=== PATIENT | female | born 1985 | race Caucasian/White ===

== ENCOUNTER 2020-05-08 15:21 | Inpatient (IN) | payer OTHER, MEDICAID, SELFPAY ==
[~2020-05-08] VITALS: Ht 152.4 cm; Wt 81.2 kg
[2020-05-08 15:31] VITALS: BP 142/81
--- NOTE | 2020-05-08 15:37 | NUR ---
1:1 WITH PATIENT IN TRIAGE ROOM WHILE BED OPENS UP, DISH PERSON AWARE
--- NOTE | 2020-05-08 16:05 | NUR ---
rapid covid swab collected and walked to lab
--- NOTE | 2020-05-08 16:06 | NUR ---
dr pringle at bedside evaluating pt.
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
[2020-05-08 16:39] LABS: BASOPHILS # (AUTO) 0.1 K/uL (0.00-0.22); BASOPHILS % (AUTO) 0.6 % (0.0-2.0); EOSINOPHILS % (AUTO) 0.2 % (0.0-4.0); HEMATOCRIT 38.7 % (36-48); HEMOGLOBIN 11.9 g/dL (12.0-16.0); LYMPHOCYTES % (AUTO) 22.7 % (20.5-51.1); MEAN CORPUSCULAR HEMOGLOBIN 21 pg (27-31); MEAN CORPUSCULAR HGB CONC 31 g/dL (33-37); MEAN CORPUSCULAR VOLUME 66.9 fL (80-94); MONOCYTES # (AUTO) 0.6 K/uL (0.8-1.0); NEUTROPHILS # (AUTO) 6.1 K/uL (1.8-7.7); NEUTROPHILS % (AUTO) 69.5 % (42.2-75.2); PLATELET COUNT (AUTO) 274 K/uL (140-450); RED BLOOD CELL COUNT(AUTO) 5.79 MIL/uL (4.20-5.40); RED CELL DISTRIBUTION WIDTH 14.9 % (11.6-13.7); WHITE BLOOD COUNT (AUTO) 8.8 K/uL (4.8-10.8)
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
[2020-05-08 16:57] LABS: ALBUMIN 4.5 g/dL (3.4-5.0); ANION GAP 13.5 (8-16); ASPARTATE AMINOTRANSFERASE 17 U/L (15-37); CARBON DIOXIDE 26.1 mmol/L (21-32); CHLORIDE 103 mmol/L (98-107); CREATININE 0.8 mg/dL (0.6-1.3); GFR ARICAN-AMERICAN 106 mL/min (>90); GLUCOSE 116 mg/dL (74-106); POTASSIUM 3.6 mmol/L (3.5-5.1); SODIUM SERUM 139 mmol/L (136-145); UREA NITROGEN, BLOOD 14 mg/dL (7-18)
[2020-05-08 16:58] LABS: ACETAMINOPHEN < 0.5 ug/ml (10-30); SALICYLATE < 2.8 mg/dL (2.8-20.0)
[2020-05-08 17:09] LABS: BARBITURATE, URINE NEGATIVE ng/ml (NEG <=200); BENZODIAZEPINE, URINE POSITIVE ng/mL (NEG <=200); CANNABINOID, URINE POSITIVE ng/mL (NEG <=50); OPIATE, URINE POSITIVE ng/mL (NEG <=2000)
[2020-05-08 17:10] LABS: COCAINE, URINE NEGATIVE ng/mL (NEG <=300); PHENCYCLIDINE SCREEN,URINE NEGATIVE ng/mL (NEG <=25)
--- NOTE | 2020-05-08 17:55 | NUR ---
psych at bedside evaluating pt.
[2020-05-08] MEDS ORDERED: LORazepam 1 MG TAB PO ONE (18:20)
[2020-05-08] MEDS ORDERED: LORazepam 1 MG TAB ONE (18:41)
--- NOTE | 2020-05-08 18:45 | NUR ---
dr pringle at bedside reevaluating pt.gave ativan 1 mg tab po.cyndi roca informed and aware meds are not in emar.
[2020-05-08] MEDS ORDERED: SERTRALINE 50 MG TAB ONE (18:47)
--- NOTE | 2020-05-08 18:55 | NUR ---
25mg tab given to pt rn abelino informed and aware.
[2020-05-08] MEDS: NACL 0.9% 1,000 ML IV SCH (19:04)
[2020-05-08] MEDS ORDERED: ACETAMINOPHEN 325 MG TAB PO PRN (19:05)
[2020-05-08] MEDS ORDERED: MAG SULF 2000 MG/WATER PREMIX 50 ML IV PRN (19:05)
[2020-05-08] MEDS ORDERED: DOCUSATE SODIUM 100 MG GELCAP PO PRN (19:05)
[2020-05-08] MEDS ORDERED: ONDANSETRON 4 MG/2 ML VIAL IM/IVP PRN (19:05)
--- NOTE | 2020-05-08 19:12 | NUR ---
gave report to cyndi mtz pt in bed with stable v/s , side rail up x1 and lock at lowest position.
--- NOTE | 2020-05-08 19:13 | NUR ---
RECIEVED REPORT FROM JAS ASHBY. TRANSFER OF CARE AT THIS TIME.
--- NOTE | 2020-05-08 19:27 | NUR ---
GAVE REPORT TO [facility] CHARGE RACHEL. PT WILL BE TAKEN TO BED 109A.
--- NOTE | 2020-05-08 19:35 | NUR ---
XRAY AT BEDSIDE.
--- NOTE | 2020-05-08 19:35 | NUR ---
RAD AT BEDSIDE
--- NOTE | 2020-05-08 19:50 | NUR ---
Patient will be admitted to care of MARJORIE. Admited to MS. Will go to room 109A. Belongings list completed. Report to JAS HODGES.
[2020-05-08 19:53] LABS: APPEARANCE,URINE CLEAR (CLEAR); BILIRUBIN,URINE 2+ (NEGATIVE); BLOOD, URINE NEGATIVE (NEGATIVE); LEUKOCYTE ESTERASE ,URINE NEGATIVE (NEGATIVE); NITRITE, URINE POSITIVE (NEGATIVE); PH,URINE 5.5 (5.0-9.0); UGLUCOSE NEGATIVE (NEGATIVE)
[2020-05-08 19:54] LABS: PROTHROMBIN TIME 12.5 secs (10.8-13.4)
--- NOTE | 2020-05-08 20:00 | NUR ---
PT ARRIVED TO FLOOR VIA W/C. PT IS AOX4 GUARDED AFFECT. PT STARTED TO CRY , BUT DECLINED TO SAY WHY. ROOMMATE OFFERED SUPPORT. PT ABLE TO AMBULATE INDEPENDENTLY. PT HAS 20GUAGE ON RAC INTACT AND ASYMPTOMATIC. PT NOTED WITH BRUISES ON LEFT UPPER ARM, ONE ON RIGHT ARM AND ONE UNDER HER CHIN. V/S FOLLOWS: T 97.8 P 80 R 18 B/P 127/78 02 100% ON ROOM AIR.
[2020-05-08 20:01] LABS: COLOR,URINE AMBER (YELLOW)
[2020-05-08 20:04] LABS: CHOL/HDL RATIO 2.8 (1-4.5); MAGNESIUM 2.1 mg/dL (1.8-2.4); PHOSPHORUS 3.1 mg/dL (2.5-4.9); THYROID STIMULATING HORMONE 0.23 uIU/mL (0.34-3.74)
--- NOTE | 2020-05-08 21:00 | NUR ---
ADMISSION QUESTIONS ANSWERED. N/S HUNG AND RUNNING AT 100MLS/HR. HEPARIN GIVEN PER ORDERED. PT EDUCATED AT BEDSIDE REGARDING PURPOSE AND SIDE EFFECTS OF HEPARIN. PLATELETS IN NORMAL RANGE. 1:1 SITTER AT BEDSIDE.
--- NOTE | 2020-05-08 22:30 | NUR ---
PT C/O DIFFICULTY FALLINGS ASLEEP AND IS FEELING ANXIOUS, PT WAS GIVEN 1MG OF ATIVAN IVP, WILL MONITOR FOR EFFECT.
[2020-05-08] MEDS: LORazepam 2 MG/ML VIAL IM/IVP PRN (22:38)
--- NOTE | 2020-05-09 | NUR ---
PT ASLEEP IN LOW BED N/S RUNNING ORDERED. 1:1 SITTER AT BEDSIDE.
[2020-05-09 01:06] VITALS: BP 127/78
--- NOTE | 2020-05-09 02:00 | NUR ---
SPOKE WITH [facility] REGARDING ORDER FORM MD BRANNON. WHO, ORDERED ATIVAN PO/PRN ORDERED X1 AND THN PRN/PRN ORDER NEED CLARIFICATION. WILL ENDORSE TO DAYSHIFT TO CLARIFY.
--- NOTE | 2020-05-09 05:00 | NUR ---
PT SLEEPING IN BED NO S/S OF PAIN OR DISTRESS NOTED. 1:1 SITTER AT BEDSIDE AND N/S RUNNING AT 100MLS/HR ORDERED.
[2020-05-09] MEDS: NACL 0.9% 1,000 ML IV SCH ×2 (05:04→15:04)
[2020-05-09 06:35] LABS: BASOPHILS % (AUTO) 0.8 % (0.0-2.0); EOSINOPHILS % (AUTO) 0.3 % (0.0-4.0); HEMATOCRIT 33.4 % (36-48); HEMOGLOBIN 10.4 g/dL (12.0-16.0); LYMPHOCYTES % (AUTO) 33.9 % (20.5-51.1); MEAN CORPUSCULAR HEMOGLOBIN 21 pg (27-31); MEAN CORPUSCULAR HGB CONC 31 g/dL (33-37); MEAN CORPUSCULAR VOLUME 67.6 fL (80-94); MONOCYTES # (AUTO) 0.4 K/uL (0.8-1.0); MONOCYTES % (AUTO) 7.3 % (1.7-9.3); NEUTROPHILS # (AUTO) 3.4 K/uL (1.8-7.7); NEUTROPHILS % (AUTO) 57.7 % (42.2-75.2); PLATELET COUNT (AUTO) 219 K/uL (140-450); RED BLOOD CELL COUNT(AUTO) 4.94 MIL/uL (4.20-5.40); RED CELL DISTRIBUTION WIDTH 14.7 % (11.6-13.7); WHITE BLOOD COUNT (AUTO) 5.8 K/uL (4.8-10.8)
[2020-05-09 07:12] LABS: ANION GAP 13.8 (8-16); CARBON DIOXIDE 24.6 mmol/L (21-32); CREATININE 0.8 mg/dL (0.6-1.3); POTASSIUM 3.4 mmol/L (3.5-5.1)
[2020-05-09 07:17] LABS: PHOSPHORUS 3.7 mg/dL (2.5-4.9)
--- NOTE | 2020-05-09 07:40 | NUR ---
RECEIVED PT FROM SENIOR IOS DEVELOPER NURSE, TRACIE, PT IS AWAKE AND LYING ON THE BED, 1:1 SITTER ON BEDSIDE, IV LINE NOTED ON THE RT AC G. 20 WITH NS INFUSING AT 100ML/HR, INTACT, PT IS ON ROOM AIR, SATURATION AT 97%, NO SIGN OF DISTRESS NOTED AND WILL CONTINUE TO MONITOR PT.
[2020-05-09 08:00] VITALS: BP 127/87
[2020-05-09] MEDS: SERTRALINE 50 MG TAB PO SCH (08:56)
[2020-05-09] MEDS: LORazepam 2 MG/ML VIAL IM/IVP PRN (08:58)
--- NOTE | 2020-05-09 08:58 | NUR ---
PT WAS GIVEN THE SCHEDULED AM MEDICATIONS, PARAMETER CHECKED, PT ASKED FOR ATIVAN AND WAS GIVEN WELL, BP IS 127/87, PULSE IS 92, O2 SATURATION IS AT 98% ON COTY AIR, TOLERATED AND NO SIGN OF DISTRESS NOTED, WILL MONITOR PT.
--- NOTE | 2020-05-09 09:08 | NUR ---
PATIENT HAS BEEN SCREENED AND CATEGORIZED LOW NUTRITION RISK. PATIENT WILL BE SEEN WITHIN 7 DAYS OF ADMISSION. 05/15/20 PATEL MAXWELL MBA, RD
--- NOTE | 2020-05-09 13:04 | NUR ---
PT WAS GIVEN 40MEQ K-DUR FOR K LEVEL OF 3.4, TOLERATED AND WILL MONITOR PT.
[2020-05-09] MEDS: POTASSIUM CHLORIDE 10 MEQ TABER PO PRN (13:05)
[2020-05-09] MEDS: HYDROcodone/APAP 5/325 MG 1 TAB TAB PO PRN (14:13)
--- NOTE | 2020-05-09 14:13 | NUR ---
PT C/O PAIN RATE OF 6/10 AND PAIN MEDICATION WAS GIVEN, TOLERATED, BP IS 136/83, PULSE IS 75, O2 SATURATION IS AT 98%, RESPIRATION IS AT 18/MIN, WILL MONITOR PT.
[2020-05-09 16:00] VITALS: BP 136/88
--- NOTE | 2020-05-09 16:40 | NUR ---
PT IS SLEEPING NOW, 1:1 SITTER ON BEDSIDE.
--- NOTE | 2020-05-09 19:20 | NUR ---
ENDORSED PT TO DETAIL ASSEMBLER NURSE FOR CONTINUITY OF CARE.
--- NOTE | 2020-05-09 19:25 | NUR ---
RECEIVED CONTINUITY OF CARE FROM AM NURSE. 1 ON 1 SITTER AT BEDSIDE. PATIENT IS RESTING IN BED, RESPIRATIONS EVEN AND UNLABORED. A/OX4 , SKIN IS WARM, INTACT, AND DRY TO TOUCH. DISCUSSED POC OF CARE WITH PATIENT. PATIENT VERBALIZED UNDERSTANDING. OBSERVED 5150 HOLD. BED IN LOW POSITION. PATIENT IS IN STABLE CONDITION AT THIS TIME. WILL CONTINUE TO MONITOR.
[2020-05-09] MEDS: ZOLPIDEM 5 MG TAB PO PRN (20:44)
--- NOTE | 2020-05-09 21:13 | NUR ---
ADMINISTERED PRN XIN. PT REFUSED HEPARIN INJECTION. EDUCATION WAS GIVEN. 1 ON 1 SITTER AT BEDSIDE. WILL CONTINUE TO MONITOR.
[2020-05-10] MEDS: NACL 0.9% 1,000 ML IV SCH ×4 (01:04→21:04)
--- NOTE | 2020-05-10 01:12 | NUR ---
PT CALLED FOR ATIVAN REPORTED FEELINGS OF ANXIETY. MEDICATED AT ORDERED. ASSISTED PATIENT TO THE BATHROOM AND BACK IN TO BED. WILL CONTINUE TO MONITOR. 1 ON 1 SITTER AT BEDSIDE.
--- NOTE | 2020-05-10 03:15 | NUR ---
PT IS SLEEPING. NO SIGNS OF DISTRESS NOTED AT THIS TIME. WILL CONTINUE TO MONITOR.
[2020-05-10 04:00] VITALS: BP 112/65
[2020-05-10 07:18] LABS: ANION GAP 13.1 (8-16); CARBON DIOXIDE 23.6 mmol/L (21-32); CREATININE 0.5 mg/dL (0.6-1.3); MAGNESIUM 1.9 mg/dL (1.8-2.4); PHOSPHORUS 2.8 mg/dL (2.5-4.9); POTASSIUM 3.7 mmol/L (3.5-5.1)
--- NOTE | 2020-05-10 07:25 | NUR ---
RECEIVED BEDSIDE REPORT FROM NIGHTSHIFT NURSE. PT RESTING IN BED. ABLE TO MAKE NEEDS KNOWN. RESPIRATIONS EVEN AND UNLABORED WITH NO SOB OR RESPIRATORY DISTRESS. IV SITE IN RAC 20G IS CLEAN, DRY, AND INTACT. SAFETY MEASURES IN PLACE. WILL CONTINUE TO MONITOR
--- NOTE | 2020-05-10 07:41 | NUR ---
ENDORSED CARE TO AM NURSE. PT IN STABLE CONDITION.
[2020-05-10 07:52] LABS: BASOPHILS % (AUTO) 0.5 % (0.0-2.0); EOSINOPHILS % (AUTO) 0.1 % (0.0-4.0); HEMATOCRIT 32.9 % (36-48); HEMOGLOBIN 10.3 g/dL (12.0-16.0); LYMPHOCYTES # (AUTO) 2.1 K/uL (2.5-16.5); MEAN CORPUSCULAR HEMOGLOBIN 21 pg (27-31); MEAN CORPUSCULAR HGB CONC 31 g/dL (33-37); MEAN CORPUSCULAR VOLUME 67.2 fL (80-94); MONOCYTES # (AUTO) 0.4 K/uL (0.8-1.0); MONOCYTES % (AUTO) 5.9 % (1.7-9.3); NEUTROPHILS # (AUTO) 4.8 K/uL (1.8-7.7); NEUTROPHILS % (AUTO) 64.5 % (42.2-75.2); PLATELET COUNT (AUTO) 238 K/uL (140-450); RED BLOOD CELL COUNT(AUTO) 4.89 MIL/uL (4.20-5.40); RED CELL DISTRIBUTION WIDTH 14.7 % (11.6-13.7); WHITE BLOOD COUNT (AUTO) 7.4 K/uL (4.8-10.8)
[2020-05-10 08:00] VITALS: BP 142/79
[2020-05-10] MEDS: SERTRALINE 50 MG TAB PO SCH (08:42)
[2020-05-10] MEDS: LORazepam 2 MG/ML VIAL IM/IVP PRN ×3 (08:43→18:32)
--- NOTE | 2020-05-10 08:47 | NUR ---
PT COMPLAINED OF ANXIETY. PRN ATIVAN ADMINISTERED PRESCRIBED PER MD ORDER. PT TOLERATED WELL. ADMINISTERED SCHED MED PRESCRIBED PER MD ORDER. PT TOLERATED WELL. MEDICATION EDUCATION PERFORMED. PT VERBALIZED UNDERSTANDING. SAFETY MEASURES IN PLACE. WILL CONTINUE TO MONITOR
--- NOTE | 2020-05-10 10:02 | NUR ---
DISCHARGE PLANNING: [facility] FAXED 5150 AND CLINICALS TO [facility] [phone]. MYLES CONTACTED ROXI FROM [facility] [phone] TO VERIFY IF CLINICALS WERE RECEIVED. ROXI STATED FAXES WERE BEING RECEIVED, AND HE WILL CONTACT MYLES IF CLINICALS AND 5150 WERE NOT RECEIVED. [facility] WILL FOLLOW UP NEEDED.
--- NOTE | 2020-05-10 11:36 | NUR ---
ADMINISTERED SCHED IVF PRESCRIBED PER MD ORDER. PT TOLERATED WELL. MEDICATION EDUCATION PERFORMED. PT VERBALIZED UNDERSTANDING. SAFETY MEASURES IN PLACE. WILL CONTINUE TO MONITOR
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
[2020-05-10] MEDS: HYDROcodone/APAP 5/325 MG 1 TAB TAB PO PRN (12:58)
--- NOTE | 2020-05-10 12:58 | NUR ---
PATIENT COMPLAINED OF ANXIETY AND MODERATE BACK PAIN .PRN ATIVAN AND NORCO ADMINISTERED PRESCRIBED PER MD ORDER. MEDICATION EDUCATION PERFORMED. PT VERBALIZED UNDERSTANDING. SAFETY MEASURES IN PLACE. WILL CONTINUE TO MONITOR
--- NOTE | 2020-05-10 14:15 | NUR ---
HOURLY ROUNDING. PT RESTING IN BED. ABLE TO MAKE NEEDS KNOWN. RESPIRATIONS EVEN AND UNLABORED WITH NO SOB OR RESPIRATORY DISTRESS. 1:1 SITTER MONITORING PATIENT. SAFETY MEASURES IN PLACE. WILL CONTINUE TO MONITOR
--- NOTE | 2020-05-10 17:30 | NUR ---
ENDORSED TO CHARGE NURSE LYNN FOR CONTINUITY OF CARE. PT IS STABLE
--- NOTE | 2020-05-10 17:31 | NUR ---
ASSUMED CARE FROM IDALIA MARK. PT AAOX4. NO SOB NOTED. NO COMPLAINTS MADE. WILL MONITOR PT FOR SUICIDAL IDEATION. WITH SITTER AT THE BEDSIDE.
--- NOTE | 2020-05-10 18:35 | NUR ---
PT VERBALIZED THAT SHE IS ANXIOUS. ATIVAN IVP GIVEN PRN. WILL CONTINUE TO MONITOR PT.
--- NOTE | 2020-05-10 19:18 | NUR ---
PT RESTING. NO SOB NOTED. NO COMPLAINTS MADE. ENDORSED TO NEXT SHIFT NURSE FOR CONTINUITY OF CARE.
--- NOTE | 2020-05-10 19:25 | NUR ---
RECEIVED CONTINUITY OF CARE FROM AM NURSE. PT IS SLEEPING IN BED, SPONTANEOUSLY BREATHING WITH EVEN AND UNLABORED RESPIRATIONS. NS INFUSING AT RIGHT AC. IV SITE IS PATENT, ASYMPTOMATIC, AND INTACT. 1 ON 1 SITTER IS AT BEDSIDE. SAFETY PRECAUTIONS IN PLACE. WILL CONTINUE TO MONITOR.
[2020-05-10 20:00] VITALS: BP 132/68
--- NOTE | 2020-05-10 21:05 | NUR ---
ADMINISTERED SCHEDULED MEDS. EDUCATION GIVEN. PT TOLERATED WILL. ONE ON ONE SITTER AT BEDSIDE. WILL CONTINUE TO MONITOR.
[2020-05-10] MEDS: ZOLPIDEM 5 MG TAB PO PRN (22:37)
--- NOTE | 2020-05-10 23:16 | NUR ---
PT IS SLEEPING. VISIBLE CHEST RISE NOTED. ONE ON ONE SITTER AT BEDSIDE.
--- NOTE | 2020-05-11 00:37 | NUR ---
At this time there are still no beds available at any of the designated facilities , will notify floor nurse when placment is found. Addendum: 05/11/20 at 0042 by Gary Santos At this time there are still no beds available at any of the designated facilities , will notify floor nurse Gian AMRK when placment is found.
--- NOTE | 2020-05-11 00:37 | NUR ---
[facility] CALLED TO REPORT THAT ARE STILL LOOKING FOR PLACEMENT FOR THE PT.
--- NOTE | 2020-05-11 01:05 | NUR ---
PT IS SLEEPING. NO SIGNS OF DISTRESS NOTED.
--- NOTE | 2020-05-11 03:14 | NUR ---
PT IS SLEEPING. VISIBLE CHEST RISE NOTED.
--- NOTE | 2020-05-11 05:10 | NUR ---
PT CALLED FOR PAIN MED, REPORTING GENERALIZED BODY ACHES AND PAIN. MEDICATED ORDER.
[2020-05-11] MEDS: MORPHINE SULFATE 2 MG/ML SYR IVP PRN ×2 (05:13→20:19)
[2020-05-11] MEDS: NACL 0.9% 1,000 ML IV SCH ×2 (06:41→17:04)
--- NOTE | 2020-05-11 07:15 | NUR ---
RECEIVED BEDSIDE REPORT FROM NIGHTSHIFT NURSE. PT RESTING IN BED. ABLE TO MAKE NEEDS KNOWN. RESPIRATIONS EVEN AND UNLABORED WITH NO SOB OR RESPIRATORY DISTRESS. SKIN WARM AND DRY TO TOUCH. IV SITE IN RAC 20G IS CLEAN, DRY, AND INTACT.
--- NOTE | 2020-05-11 07:36 | NUR ---
PT IS SLEEPING. NO SIGNS OF DISTRESS NOTED. Addendum: 05/11/20 at 0737 by Gian Rhodes RN ENDORSED CARE TO AM NURSE. PT IN STABLE CONDITION.
[2020-05-11 07:49] LABS: BASOPHILS % (AUTO) 0.5 % (0.0-2.0); HEMOGLOBIN 10.6 g/dL (12.0-16.0); LYMPHOCYTES # (AUTO) 2.1 K/uL (2.5-16.5); LYMPHOCYTES % (AUTO) 29.1 % (20.5-51.1); MEAN CORPUSCULAR HEMOGLOBIN 21 pg (27-31); MEAN CORPUSCULAR HGB CONC 31 g/dL (33-37); MEAN CORPUSCULAR VOLUME 67.7 fL (80-94); MONOCYTES # (AUTO) 0.5 K/uL (0.8-1.0); MONOCYTES % (AUTO) 6.4 % (1.7-9.3); NEUTROPHILS # (AUTO) 4.7 K/uL (1.8-7.7); PLATELET COUNT (AUTO) 237 K/uL (140-450); RED BLOOD CELL COUNT(AUTO) 5.02 MIL/uL (4.20-5.40); RED CELL DISTRIBUTION WIDTH 14.8 % (11.6-13.7); WHITE BLOOD COUNT (AUTO) 7.3 K/uL (4.8-10.8)
[2020-05-11 08:00] VITALS: BP 132/77
[2020-05-11 08:07] LABS: ANION GAP 15.1 (8-16); CARBON DIOXIDE 23.2 mmol/L (21-32); CREATININE 0.6 mg/dL (0.6-1.3); POTASSIUM 3.3 mmol/L (3.5-5.1)
[2020-05-11 08:20] LABS: MAGNESIUM 1.8 mg/dL (1.8-2.4); PHOSPHORUS 3.5 mg/dL (2.5-4.9)
[2020-05-11] MEDS: SERTRALINE 50 MG TAB PO SCH (09:05)
[2020-05-11] MEDS: LORazepam 2 MG/ML VIAL IM/IVP PRN ×2 (09:15→13:29)
--- NOTE | 2020-05-11 09:15 | NUR ---
PT CALLED AND COMPLAINED OF ANXIETY. PRN ATIVAN ADMINISTERED PRESCRIBER PER MD ORDER. ADMINISTERED SCHED MED PRESCRIBED PER MD ORDER. PT TOLERATED WELL. MEDICATION EDUCATION PERFORMED. PT VERBALIZED UNDERSTANDING. SAFETY MEASURES IN PLACE. WILL CONTINUE TO MONITOR
[2020-05-11] MEDS: POTASSIUM CHLORIDE 10 MEQ TABER PO PRN (09:34)
--- NOTE | 2020-05-11 09:35 | NUR ---
PT POTASSIUM IS 3.3. PRN POTASSIUM ADMINISTERED PRESCRIBED PER MD ORDER. PT TOLERATED WELL. MEDICATION EDUCATION PERFORMED. PT VERBALIZED UNDERSTANDING. SAFETY MEASURES IN PLACE. WILL CONTINUE TO MONITOR
[2020-05-11] MEDS: HYDROcodone/APAP 5/325 MG 1 TAB TAB PO PRN (11:49)
--- NOTE | 2020-05-11 11:49 | NUR ---
PATIENT COMPLAINED OF MODERATED BACK PAIN. PRN NORCO ADMINISTERED PRESCRIBED PER MD ORDER. PT TOLERATED WELL. MEDICATION EDUCATION PERFORMED. PT VERBALIZED UNDERSTANDING. SAFETY MEASURES IN PLACE. WILL CONTINUE TO MONITOR
--- NOTE | 2020-05-11 12:33 | NUR ---
HOURLY ROUNDING. PT RESTING IN BED. ABLE TO MAKE NEEDS KNOWN. RESPIRATIONS EVEN AND UNLABORED WITH NO SOB OR RESPIRATORY DISTRESS. SKIN WARM AND DRY TO TOUCH. 1:1 SITTER MONITORING PATIENT. SAFETY MEASURES IN PLACE. WILL CONTINUE TO MONITOR
--- NOTE | 2020-05-11 13:29 | NUR ---
PT CALLED AND COMPLAINED OF ANXIETY. PT CRYING UPON ENTERING ROOM. ADMINISTERED ATIVAN PRESCRIBED PER MD ORDER. PT TOLERATED WELL. MEDICATION EDUCATION PERFORMED. PT VERBALIZED UNDERSTANDING. SAFETY MEASURES IN PLACE. WILL CONTINUE TO MONITOR
--- NOTE | 2020-05-11 14:20 | NUR ---
ENDORSED TO DAYSHIFT NURSE FOR CONTINUITY OF CARE. PT IS STABLE
--- NOTE | 2020-05-11 14:21 | NUR ---
RECEIVED REPORT FROM DAY SHIFT NURSE IDALIA FOR CONTINUITY OF CARE. PATIENT RESTING IN BED, NO ACUTE DISTRESS NOTED. WILL CONTINUE TO MONITOR.
[2020-05-11 16:00] VITALS: BP 114/76
--- NOTE | 2020-05-11 16:32 | NUR ---
There are still no beds at this time. Will endorse to the oncoming shift.
--- NOTE | 2020-05-11 17:06 | NUR ---
PATIENT SLEEPING IN BED WITH RIGHT LATERAL POSITION, VISIBLE CHEST RISE AND FALLS. SITTER AT SIDE. WILL CONTINUE TO MONITOR.
--- NOTE | 2020-05-11 18:00 | NUR ---
ATIVAN ADMINISTERED VIA IVP FOR ANXIETY, PER PATIENT REQUESTED. EDUCATION PROVIDED, PATIENT TOLERATED WELL. WILL CONTINUE TO MONITOR.
--- NOTE | 2020-05-11 19:20 | NUR ---
ENDORSED PATIENT TO PLATFORM MILL SUPERVISOR RN MJ FOR CONTINUITY OF CARE.
--- NOTE | 2020-05-11 20:00 | NUR ---
RECEIVED REPORT FROM DAY RN REGARDING THE PT FOR CONTINUITY OF CARE. PT A/A/OX4, LAYING IN BED ASLEEP DURING ROUNDS. SITTER AT THE BEDSIDE. PT IS ON 5150 HOLD. NOT ON ANY DISTRESS. NO COMPLAIN OF PAIN AT THIS TIME. IVF INFUSING ORDERED. WILL CONTINUE POC.
--- NOTE | 2020-05-11 20:58 | NUR ---
Received a phone call from [place] from behavioral call Center. Requested to fax her the latest order for 72 hour hold. Faxed it to phone number [phone] as requested. Per [place] she will submit pt information to [facility].
--- NOTE | 2020-05-11 23:39 | NUR ---
Patient has been accepted to [facility] for continuity of care for psychiatric admission and transfer. Patient will be going to bed 142 - A. Accepting physicians Dr. Aragon/ Dr Menon Nurse to Nurse report - [phone]. Patient can be transferred per nurse discretion
--- NOTE | 2020-05-11 23:43 | NUR ---
RECEIVED A PHONE CALL FROM ITZEL FROM [facility] AND ASKED ABOUT PATIENT INFORMATION. ITZEL STATED HE IS EVALUATING THE PT FOR TRANSFER AND WILL CALL US BACK IF THE PT GET ACCEPTED IN THEIR FACILITY. Addendum: 05/12/20 at 0013 by Manjula Dick RN RN [facility] IN [place].
--- NOTE | 2020-05-11 23:55 | NUR ---
JAS ROBBINS FROM [facility] CALLED BACK AND STATED THAT THE PT IS ACCEPTED AND PT IS GOING TO ROOM 142 BED A. PATIENT WILL BE UNDER DR JOHANNA SANTIAGO. ADDRESS OF THE HOSPITAL IS [address] [phone]. PHONE NUMBER OF THE FLOOR IS [phone]. WILL NOTIFY DESIGNER WRITER ROY & CALL FOR TRANSPORTATION TO TRANSFER THE PT.
[2020-05-12] VITALS: BP 126/74
--- NOTE | 2020-05-12 00:38 | NUR ---
NOTIFIED PRODUCTION ILLUSTRATOR MD ABREU THROUGH TEXT THAT THE PT IS BEING TRANSFER TO [facility] IN [place], RM 142 BED A. ALSO CONTACT AGENT ROY MADE AWARE OF THE TRANSFER. PER CONTACT AGENT ROY PT IS BEING CAT DOG OR OTHER PET GROOMER BY [facility] AT 2AM TODAY. PATIENT NOTIFIED OF THE TRANSFER TODAY AND AWARE.
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
--- NOTE | 2020-05-12 00:56 | NUR ---
[facility] CALLED AND STATED THAT THEY DON'T HAVE AVAILABLE CREW TO TRANSPORT THE PT AT 2AM. HEALTH AND SAFETY COORDINATOR FOR THE PT WILL BE AT 05:30AM. CALLED JAS ROBBINS FROM [facility] AND NOTIFIED HIM OF THE NEW HEALTH AND SAFETY COORDINATOR TIME AND AWARE. PT ALSO MADE AWARE OF THE NEW HEALTH AND SAFETY COORDINATOR TIME.
[2020-05-12] MEDS: LORazepam 2 MG/ML VIAL IM/IVP PRN (01:16)
--- NOTE | 2020-05-12 02:13 | NUR ---
PER ART HISTORY [facility]OR[facility]AS [facility] IS EARLY AND COMING NOW TO ANCILLARY SERVICES MANAGER THERAPY THE PT. PT MADE AWARE AND CALL JAS ROBBINS AGAIN FROM [facility] AND ALSO MADE AWARE OF THE PT ETA.
[2020-05-12 02:30] VITALS: BP 152/96
--- NOTE | 2020-05-12 02:34 | NUR ---
PT ANXIOUS ABOUT THE TRANSFER BP 152/96, HR-90. MEDICATED WITH ATIVAN EARLIER PER PT REQUEST. DC/D THE IV ON THE RIGHT AC, CANNULA INTACT. NO BLEEDING OR HEMATOMA NOTED. PT ALSO SPOKE WITH HER PARENTS AND LET THEM KNOW ABOUT THE TRANSFER AND WHAT HOSPITAL SHE'S GOING. [facility] STAFF TAKEN THE PT BY ALIA. PT LEFT THE UNIT IN STABLE CONDITION A/A/OX4. VSS, AFEBRILE, SATING 98% ON RA. ALL BELONGINGS RETURNED INCLUDING CELLPHONE WITH EMERGING TECHNOLOGIES DIRECTOR AND THE ONE FROM THE SECURITY DEPARTMENT.
--- NOTE | 2020-05-12 02:35 | NUR ---
PATIENT TRANSFERRED TO [facility] IN [place], ROOM 142 BED A.
[2020-05-12] MEDS ORDERED: SERT-146 (18:48)
== END 2020-05-12 02:35 | DRG 917 ==
LOC: MED 15:21 → MTU 19:04
DX: T40.7X1A Poisoning by cannabis (derivatives), accidental (unintentional), initial encounter (principal); G92 Toxic encephalopathy; R45.851 Suicidal ideations; F33.9 Major depressive disorder, recurrent, unspecified; E87.6 Hypokalemia; Z20.828 Contact with and (suspected) exposure to other viral communicable diseases; D64.9 Anemia, unspecified; E86.0 Dehydration; Y92.89 Other specified places as the place of occurrence of the external cause
CPT/HCPCS: 36415; 71045; 80048; 80053; 80305; 81003; 81025; 82140; 82150; 83036; 83690; 83735; 83880; 84100; 84134; 84443; 84479; 85025; 85610; 85730; 87081; 99285; G0480; G0482; J1644; J2060; J2270; J7030; Q0092